=== PATIENT | female | born 1965 | race Caucasian/White ===

== ENCOUNTER 2017-08-05 23:21 | Emergency (ER) | payer OTHER ==
[2017-08-05 23:37] LABS: URINE APPEARANCE Clear; URINE BILIRUBIN Negative (NEGATIVE); URINE GLUCOSE (UA) Negative (NEGATIVE); URINE KETONE Negative (NEGATIVE); URINE NITRITE Negative (NEGATIVE); URINE PROTEIN Trace (NEGATIVE); URINE UROBILINOGEN 0.2 (0.2-1.0)
[2017-08-05 23:38] LABS: URINE BLOOD 2+ (NEGATIVE); URINE COLOR YELLOW; URINE LEUK ESTERASE TRACE (NEGATIVE)
[2017-08-05 23:46] VITALS: BP 164/98; PULSE 77; TEMP 98.7; BMI 29.2
[2017-08-05 23:49] LABS: AMORP PHOS FEW /hpf (NONE SEEN); EPI CELLS FEW /HPF; URINE BACTERIA MODERATE /hpf (NEGATIVE)
[2017-08-06] MEDS ORDERED: KETOROLAC TROMETHAMINE 15 MG/ML VIAL IVPUSH ONE (01:05)
[2017-08-06] MEDS ORDERED: SODIUM CHLORIDE 0.9% 1000 ML INFUS.BAG IV ONE (01:05)
[2017-08-06] MEDS ORDERED: KETOROLAC TROMETHAMINE 15 MG/ML VIAL ONE (01:10)
--- NOTE | 2017-08-06 01:10 | PDOC ---
History of Present Illness - General Chief Complaint: Pain, Acute Stated Complaint: ABD & FLANK PAIN Time Seen by Provider: 08/05/17 23:24 History Source: Patient Exam Limitations: No Limitations - History of Present Illness Initial Comments: 08/06/17 01:05 51-year-old female with past medical history here today complaining of left- sided flank pain radiating to the left groin. Also complaining of urinary frequency denies dysuria no nausea no vomiting no fevers or chills no history of prior kidney stones patient has been menopausal for 1 year no moderating factors started this evening Past History - Past Medical History Allergies/Adverse Reactions: Allergies Allergy/AdvReac Type Severity Reaction Status Date / Time Penicillins Allergy Unknown Verified 08/05/17 23:43 Home Medications: Ambulatory Orders Atorvastatin Ca [Lipitor] 20 mg PO DAILY 08/05/17 Ibuprofen [Motrin -] 600 mg PO TID #90 tablet 08/06/17 Tamsulosin HCl [Flomax] 0.4 mg PO HS #10 cap.er.24h MDD 1 08/06/17 COPD: No - Suicide/Smoking/Psychosocial Hx Smoking History: Never smoked Hx Alcohol Use: Yes (RARE) Drug/Substance Use Hx: No Review of Systems - Review of Systems Constitutional: No: Chills, Diaphoresis Respiratory: No: Cough, Orthopnea Cardiac (ROS): No: Chest Pain, Edema ABD/GI: No: Abdominal Distended, Nausea (the knee) : Yes: Frequency, Urgency. No: Burning, Dysuria Musculoskeletal: Yes: Back Pain Integumentary: No: Bruising, Change in Color Neurological: No: Headache, Numbness All Other Systems: Reviewed and Negative *Physical Exam - Vital Signs Last Vital Signs Temp Pulse Resp BP Pulse Ox 98.7 F 77 16 164/98 97 08/05/17 23:22 08/05/17 23:22 08/05/17 23:22 08/05/17 23:22 08/05/17 23:22 - Physical Exam General Appearance: Yes: Nourished HEENT: positive: Normal ENT Inspection Neck: positive: Trachea midline Respiratory/Chest: positive: Lungs Clear, Normal Breath Sounds. negative: Accessory Muscle Use Cardiovascular: positive: Regular Rhythm, Regular Rate, S1, S2 Gastrointestinal/Abdominal: positive: Normal Bowel Sounds, Flat, Soft. negative : Tender Musculoskeletal: positive: Normal Inspection, CVA Tenderness, CVA Tenderness (L) . negative: CVA Tenderness (R) Extremity: positive: Normal Capillary Refill, Normal Inspection Integumentary: positive: Normal Color, Dry, Warm Neurologic: positive: Fully Oriented, Alert, Normal Mood/Affect ED Treatment Course - ADDITIONAL ORDERS Additional order review: Laboratory Results 08/05/17 23:30 Urine Color Yellow Urine Appearance Clear Urine pH 7.0 Ur Specific [place] 1.020 Urine Protein Trace Urine Glucose (UA) Negative Urine Ketones Negative Urine Blood 2+ H Urine Nitrite Negative Urine Bilirubin Negative Urine Urobilinogen 0.2 Ur Leukocyte Esterase Trace H Urine RBC 5-10 Urine WBC 2-5 Ur Epithelial Cells Few Amorphous Phosphates Few Urine Bacteria Moderate - RADIOLOGY Radiology Studies Ordered: Category Date Time Status SPIRAL- RENAL-STONE CT [CT] Stat CT Scan 08/05/17 23:50 Taken Medical Decision Making - Medical Decision Making 08/06/17 01:08 Differential diagnosis includes UTI, pyelonephritis, renal colic, diverticulitis. Plan CBC CMP UA urine culture and CT renal stone protocol. Patient control and IV hydration as needed CT abdomen and pelvis with a 6 mm left UVJ stone plan pain medication Motrin IV hydration and discharge home with urology follow-up *DC/Admit/Observation/Transfer Diagnosis at time of Disposition: Renal colic on left side - Discharge Dispostion Condition at time of disposition: Improved Admit: No - Prescriptions Prescriptions: Ibuprofen [Motrin -] 600 mg PO TID #90 tablet Tamsulosin HCl [Flomax] 0.4 mg PO HS #10 cap.er.24h MDD 1 - Referrals Referrals: Madonna Valdovinos MD [Primary Care Provider] - Shawn Orlando MD [Staff Physician] - - Patient Instructions Printed Discharge Instructions: Kidney Stones -- Adult Additional Instructions: you can take ibuprofen 600 mg every 8 hours as needed for pain. take flomax 0.4mg nightly x 10 days. follow up with urology see referral information dr. Orlando. - Post Discharge Activity
[2017-08-06 01:55] LABS: BASO % 0.3 % (0-2.0); HEMATOCRIT 38.1 % (32.4-45.2); HEMOGLOBIN 12.8 GM/dL (10.7-15.3); LYMPH % 35.6 % (8-40); MCH 29.3 pg (25.7-33.7); MCHC 33.7 g/dl (32.0-36.0); MEAN CELL VOLUME 86.9 fl (80-96); MEAN PLT VOLUME 8.7 fl (7.5-11.1); NEUT % 54.1 % (42.8-82.8); PLATELET COUNT 260 K/MM3 (134-434); RBC 4.38 M/mm3 (3.60-5.2); RDW 14.7 % (11.6-15.6)
[2017-08-06] MEDS ORDERED: TAMSULOSIN HCL 0.4 MG CAP.ER.24H (FP) ONE (01:55)
[2017-08-06] MEDS ORDERED: TAMSULOSIN HCL 0.4 MG CAP.ER.24H (FP) PO ONE (01:57)
[2017-08-06 02:33] LABS: ALBUMIN 3.8 g/dl (3.4-5.0); ALK PHOS 91 U/L (45-117); ANION GAP 6 (8-16); BILIRUBIN,TOTAL 0.1 mg/dL (0.2-1.0); BLOOD UREA NITROGEN 20 mg/dL (7-18); CALCIUM 8.6 mg/dL (8.5-10.1); CHLORIDE 104 mmol/L (98-107); CO2 28 mmol/L (21-32); CREATININE 0.8 mg/dL (0.55-1.02); GLUCOSE,RANDOM 168 mg/dL (74-106); POTASSIUM 3.5 mmol/L (3.5-5.1); SGOT/AST 12 U/L (15-37); SGPT/ALT 25 U/L (12-78); SODIUM 138 mmol/L (136-145); TOT PROT 6.9 g/dl (6.4-8.2)
== END 2017-08-06 03:09 | disposition home or self-care (01) ==
LOC: FER 23:21
PROC: 3E0333Z Introduction of Anti-inflammatory into Peripheral Vein, Percutaneous Approach (ICD-10-PCS; principal; 2017-08-05)
PROC: 3E0337Z Introduction of Electrolytic and Water Balance Substance into Peripheral Vein, Percutaneous Approach (ICD-10-PCS; 2017-08-05)
DX: N23 Unspecified renal colic (principal)
CPT/HCPCS: 36415; 74176; 80053; 81003; 81015; 85025; 87086; 99282-25; J7030